=== PATIENT | female | born 1940 | race Asian ===

== ENCOUNTER 2017-11-11 21:23 | Emergency (ER) | payer OTHER, MEDICAID ==
--- NOTE | 2017-11-11 21:38 | EDPHY ---
H & P Stated Complaint: Fell two hours ago, R hip pain Time Seen by Provider: 11/11/17 21:38 HPI/ROS: HPI CHIEF COMPLAINT: Right lateral hip pain, additionally swollen left lateral upper lip possible infection HISTORY OF PRESENT ILLNESS: Very pleasant 77-year-old female, she has a history of mitral valve replacement, she is on Coumadin aspirin, history of CVA , presents emergency room with to main complaint separate issues. She states over the last 24 hr she developed a cold sore on her left upper lip and the left upper lateral lip is swollen and red and painful. Denies any other lesions anywhere else. Denies fever. States additionally she has been having some right lateral hip pain. She thinks it may stem from her back in terms of sciatica. Patient states that she has been noting some increasing right gluteus and right lateral hip pain back pain. Patient states that may come from her lumbar spine. No recent trauma. Had difficulty walking today. She presents emergency room by private vehicle with her daughter. Daughter patient denies any falling recently. No trauma reported. Past Medical History: mitral valve replacement, CVA, AFib on Coumadin Past Surgical History: Mitral valve replaced Social History: Denies drugs alcohol tobacco. Family History: Noncontributory ROS REVIEW OF SYSTEMS: A comprehensive 10 point review of systems is otherwise negative aside from elements mentioned in the history of present illness. Exam Constitutional appears well nontoxic, triage nursing summary reviewed, vital signs reviewed, awake/alert. Eyes normal conjunctivae and sclera, EOMI, PERRLA. HENT oropharynx: Left upper lip lateral aspect there is HSV lesion present. Blister present. Intact. With surrounding erythema and swelling. normal inspection, atraumatic, moist mucus membranes, no epistaxis, neck supple/ no meningismus, no raccoon eyes. Respiratory clear to auscultation bilaterally, normal breath sounds, no respiratory distress, no wheezing. Cardiovascular rate normal, regular rhythm, no murmur, no edema, distal pulses normal. Gastrointestinal soft, non-tender, no rebound, no guarding, normal bowel sounds, no distension, no pulsatile mass. Genitourinary no CVA tenderness. Musculoskeletal no significant midline back pain. No crepitus. No step-offs. Mild tender palpation right lateral hip. However distally neurovascular intact good distal pulse, good cap refill, full range of motion, with straight leg raise does have some right lateral hip pain. full range of motion, no calf swelling, no tenderness of extremities, no meningismus, good pulses, neurovascularly intact. Skin what appears to be HSV of the left upper lip. Neurologic awake, alert and oriented x 3, AAOx3, moves all 4 extremities equally, motor intact, sensory intact, CN II-XII intact, normal cerebellar, normal vision, normal speech. Psychiatric normal mood/affect. Heme/Lymph/Immune no lymphadenopathy. Differential Diagnosis: Includes but is not limited to in a particular order HSV infection, herpes infection, herpes with superinfection with surrounding cellulitis, sciatica, nerve root compression, annular tear, disc herniation, compression fracture Medical Decision Making: X-ray of the lumbar spine, x-ray of the right hip, will start on acyclovir and Keflex for possible HSV/cellulitis of the left upper lip. Re-evaluation: Source: Patient - Personal History Current Tetanus/Diphtheria Vaccine: Yes Current Tetanus Diphtheria and Acellular Pertussis (TDAP): Yes - Medical/Surgical History Hx Asthma: No Hx Chronic Respiratory Disease: No Hx Diabetes: No Hx Cardiac Disease: Yes Hx Renal Disease: No Hx Cirrhosis: No Hx Alcoholism: No Hx HIV/AIDS: No Hx Splenectomy or Spleen Trauma: No Other PMH: cva, syncope, a-fib, a-flutter - Social History Smoking Status: Never smoked Constitutional: Initial Vital Signs Temperature (C) 36.8 C 11/11/17 21:27 Heart Rate 76 11/11/17 21:27 Respiratory Rate 16 11/11/17 21:27 Blood Pressure 97/58 L 11/11/17 21:27 O2 Sat (%) 96 11/11/17 21:27 O2 Delivery Mode Room Air Allergies/Adverse Reactions: No Known Allergies Allergy (Verified 05/13/14 09:40) Home Medications: Medication Instructions Recorded Aspirin [Aspirin 325 mg (OTC)] 05/13/14 CALCIUM CARBONATE [CALCIUM] 300 mg PO 05/13/14 Diltiazem [Cardizem 60 MG (RX)] 05/13/14 Sertraline HCl [Zoloft 100mg (RX)] 100 mg PO DAILY 05/13/14 Acyclovir 800 mg PO 5XD #35 tab 11/11/17 Cephalexin [Keflex] 500 mg PO Q6H #28 cap 11/11/17 Coumadin 11/11/17 Medical Decision Making - Data Points Medications Given: Discontinued Medications Acyclovir (Acyclovir) 800 mg PO EDNOW ONE Stop: 11/11/17 21:49 Last Admin: 11/11/17 21:53 Dose: 800 mg Cephalexin HCl (Keflex) 500 mg PO EDNOW ONE PRN Reason: Protocol Stop: 11/11/17 21:49 Last Admin: 11/11/17 21:53 Dose: 500 mg Departure - Departure Disposition: Home, Routine, Self-Care Clinical Impression: Lumbar radicular pain, HSV infection Condition: Good Instructions: Cellulitis (ED), Oral Herpes Simplex Virus Infections (ED), Lumbar Radiculopathy (ED) Additional Instructions: 1. Antibiotics as prescribed. 2. Antivirals as prescribed take on a full stomach not on an empty stomach 3. Follow up with your primary care doctor. Referrals: NONE *PRIMARY CARE P,. [Primary Care Provider] - As per Instructions Prescriptions: Acyclovir 800 mg PO 5XD #35 tab Cephalexin [Keflex] 500 mg PO Q6H #28 cap
[2017-11-11] MEDS ORDERED: CEPHALEXIN 500 MG CAP PO ONE (21:48)
[2017-11-11] MEDS ORDERED: ACYCLOVIR 400 MG TAB PO ONE (21:48)
[2017-11-11 23:23] VITALS: BP 102/66
== END 2017-11-11 23:20 | disposition home or self-care (01) ==
DX: M54.16 Radiculopathy, lumbar region (principal); B00.9 Herpesviral infection, unspecified; Z79.01 Long term (current) use of anticoagulants; Z79.82 Long term (current) use of aspirin; Z86.73 Personal history of transient ischemic attack (TIA), and cerebral infarction without residual deficits